=== PATIENT | male | born 1960 | race African-American/Black ===

== ENCOUNTER 2020-07-20 05:12 | Inpatient (IN) ==
--- NOTE | 2020-07-20 05:34 | Emergency Department Note ---
Impression & Plan NSTEMI (non-ST elevated myocardial infarction) ED Provider Note NAME: FARZANEH [id number] VINCENT AGE: 59 SEX: M ARRIVES VIA: Ambulance INFORMANT: Patient ED PROVIDER(S): Pamela Coates DO CHIEF COMPLAINT: Substernal chest pain PLAN: [facility] MEDICAL DECISION MAKING: This is a 59-year-old male patient who presents to the emergency department from the present after awakening with substernal chest pain. Patient was significantly diaphoretic upon evaluation at the detention. He received sublingual nitroglycerin and aspirin which relieved his discomfort. EKG is unremarkable, however the patient has an elevated troponin. He has been chest pain-free while here in the emergency department. The patient received aspirin in the prehospital setting. The patient was bolused with heparin and started on a heparin drip. Triage Nursing notes reviewed and agree them. Vital Signs: reviewed and unremarkable Differential diagnosis: GERD, costochondritis, aortic dissection, STEMI, NSTEMI ER treatment provided: Heparin bolus Heparin drip Diagnostics interpreted by me: ECG: Normal sinus rhythm at a rate of [address] segment elevation or signs of ischemia. There is no ectopy. QTC is 404. There are no previous EKGs for comparison Cardiac Monitoring: Normal sinus rhythm at 74 Laboratory studies: See below Imaging studies: As per my interpretation Portable chest x-ray: No evidence of cardiomegaly; no pulmonary infiltrates or consolidations HPI: 59/M arrives for evaluation of chest pain. The patient woke from sleep with substernal chest pain that did not seem to radiate anywhere. The patient denies any shortness of breath, nausea or vomiting. He was significantly diaphoretic according to EMS. They administered sublingual nitroglycerin which relieved his pain. He was also given 4 baby aspirin. The patient has no past medical history and no family history of heart disease. The patient's substernal chest discomfort lasted for approximately 45 minutes. ROS: See above HPI for pertinent positives & negatives. A total of 10 systems reviewed and were otherwise negative. PAST MEDICAL HISTORY:See Below PAST SURGICAL HISTORY:See Below FAMILY HISTORY:He denies any family history of heart disease in his parents or siblings. SOCIAL HISTORY:Patient is a prisoner HOME MEDICATIONS:See Below ALLERGIES:See Below VITALS:See Below PHYSICAL EXAMINATION: HEENT: Head - normocephalic and atraumatic Pupils are equal, round, and reactive to light. Extraocular eye muscles are intact, and sclera are anicteric. Nose - moist nasal mucosa without discharge. Mouth - moist buccal mucosa. Oropharynx is nonerythematous and there is no tonsillar exudate or edema noted. Neck: Supple; no cervical lymphadenopathy or JVD Heart: Regular rate and rhythm. There is a normal S1 and S2 with no murmurs, clicks, or gallops appreciated. Lungs: Clear to auscultation bilaterally with no wheezes, rales, or rhonchi. Abdomen: Soft, completely nontender, nondistended, with good bowel sounds. There are no palpable pulsatile masses or hepatosplenomegaly. There is no guarding, rigidity, or rebound noted. Extremities: No evidence of cyanosis, clubbing, or edema. There are easily palpable peripheral pulses. Skin: warm and dry with good turgor and no rashes. ED COURSE: Times/Reassessments: 0520: Patient was evaluated in room C4. A complete history and physical was performed. An order was placed for continuous cardiac monitoring. The patient was in a normal sinus rhythm at a rate of 74. A twelve-lead EKG was obtained. Laboratory studies were drawn as above. Patient had a portable chest x-ray as described above. I reevaluated the patient at this time. He remains chest pain-free. Nursing staff did a rectal exam which was heme-negative. The patient was bolused with IV heparin. I reviewed the results of the laboratory studies and x-ray with the patient. He will be started on a heparin drip. I discussed the case with the [facility] hospitalist and they will evaluate for further management. I have personally spent greater than 30 minutes of critical care time in the direct management of this patient. This includes bedside care, interpretation of diagnostic studies, and testing, discussion with consultants, patient, and family members, and other required patient management activities. This 30 minutes is in excess of all separately billable procedures. Pamela Coates, Past Med/Surg History Medical History No significant past medical history Surgical History (Updated 07/20/20 @ 09:22 by Leigh Robert MD) No significant past surgical history Family History (Updated 07/20/20 @ 09:23 by Leigh Robert MD) Father Prostate cancer Mother , age 48 from ruptured cerebral aneurysm Cerebral aneurysm Denies family history of Coronary heart disease Social History (Updated 07/20/20 @ 09:24 by Leigh Robert MD) Smoking Status: Never smoker Tobacco Type: Cigarettes Age Started Using Tobacco: 18; Age Quit Using Tobacco: 19; Years Smoked: 1; Hx Alcohol Use: No Hx Substance Use: No Preferred Language: Sinhala Communication Ability: Effective Quality Analyst Required: No Beliefs That Will Affect Care: None Current Living Situation: Other Current Living Situation Comment: Prisoner Feels Safe at Home: Yes Assistive Devices: None Allergies Allergies Allergy/AdvReac Type Severity Reaction Status Date / Time No Known Allergies Allergy Unverified 07/20/20 05:18 Home Meds Home Medications Medication Instructions Recorded Confirmed No Known Home Medications 07/20/20 07/20/20 Results & Data (ED) Vital Signs Vital Signs - 24 hr 07/20/20 05:20 07/20/20 05:21 07/20/20 05:54 Temperature 36.7 C Temperature Source Oral Pulse Rate 70 Pulse Rate from SpO2 Sensor Respiratory Rate 14 Blood Pressure 143/85 H Blood Pressure Mean 104 Pulse Oximetry 94 96 98 Oxygen Delivery Method Room Air Room Air Sepsis Recent Fever Within 48 Hours No Sepsis New/Unexplained Change in Mental Status N/A Sepsis Action Taken by Nursing No Action Required 07/20/20 06:00 07/20/20 06:30 07/20/20 06:56 Temperature Temperature Source Pulse Rate 64 75 70 Pulse Rate from SpO2 Sensor 65 77 69 Respiratory Rate 17 14 17 Blood Pressure 147/87 H Blood Pressure Mean 107 Pulse Oximetry 99 98 99 Oxygen Delivery Method Sepsis Recent Fever Within 48 Hours Sepsis New/Unexplained Change in Mental Status Sepsis Action Taken by Nursing 07/20/20 06:57 07/20/20 07:00 07/20/20 07:01 Temperature Temperature Source Pulse Rate 68 71 69 Pulse Rate from SpO2 Sensor 69 69 69 Respiratory Rate 18 13 15 Blood Pressure 149/88 H Blood Pressure Mean 108 Pulse Oximetry 99 100 100 Oxygen Delivery Method Sepsis Recent Fever Within 48 Hours Sepsis New/Unexplained Change in Mental Status Sepsis Action Taken by Nursing 07/20/20 07:30 07/20/20 07:31 07/20/20 08:00 Temperature Temperature Source Pulse Rate 67 60 78 Pulse Rate from SpO2 Sensor 67 61 76 Respiratory Rate 13 18 12 Blood Pressure 149/90 H 144/87 H Blood Pressure Mean 109 106 Pulse Oximetry 99 99 100 Oxygen Delivery Method Sepsis Recent Fever Within 48 Hours Sepsis New/Unexplained Change in Mental Status Sepsis Action Taken by Nursing 07/20/20 08:01 07/20/20 08:30 07/20/20 08:31 Temperature Temperature Source Pulse Rate 65 65 66 Pulse Rate from SpO2 Sensor 66 65 Respiratory Rate 18 14 16 Blood Pressure 125/70 Blood Pressure Mean 88 Pulse Oximetry 100 99 Oxygen Delivery Method Sepsis Recent Fever Within 48 Hours Sepsis New/Unexplained Change in Mental Status Sepsis Action Taken by Nursing Laboratory Data Result diagrams: 07/20/20 05:42 07/20/20 05:42 Lab Results 07/20/20 07/20/20 07/20/20 Range/Units 05:42 05:42 06:10 WBC 9.38 (4.8-10.8) K/uL RBC 4.54 L (4.7-6.1) M/uL Hgb 14.2 (14.0-18.0) g/dL Hct 41.0 L (42-52) % MCV 90.3 (80-100) fL MCH 31.3 (25-34) pg MCHC 34.6 (32-36) g/dL RDW Std Deviation 41.9 (36.4-46.3) fL RDW Coeff of Eder 12.8 (11.5-14.5) % Plt Count 176 (130-400) K/uL MPV 10.1 (7.4-10.4) fL Immature Gran % (Auto) 0.2 % Neut % (Auto) 78.8 % Lymph % (Auto) 15.1 % Lane % (Auto) 5.3 % Eos % (Auto) 0.4 % Baso % (Auto) 0.2 % Neut # (Auto) 7.38 H (1.4-6.5) K/uL Lymph # (Auto) 1.42 (1.2-3.4) K/uL Lane # (Auto) 0.50 (0.11-0.59) K/uL Eos # (Auto) 0.04 (0-0.5) K/uL Baso # (Auto) 0.02 (0-0.2) K/uL Immature Gran # (Auto) 0.02 (0.00-0.02) K/uL Sodium 140 (136-145) mmol/L Potassium 4.0 (3.5-5.1) mmol/L Chloride 110 H (98-107) mmol/L Carbon Dioxide 27 (21-32) mmol/L Anion Gap 3.0 (3-11) BUN 17 (7-18) mg/dl Creatinine 1.23 (0.6-1.4) mg/dl Est Cr Clr Drug Dosing 68.2 ml/min Est GFR ( Amer) 74.0 Est GFR (Non-Af Amer) 63.9 BUN/Creatinine Ratio 14.1 (10-20) Glucose 127 H (70-99) mg/dl Calcium 8.4 L (8.5-10.1) mg/dl Total Bilirubin 0.3 (0.2-1) mg/dl AST 25 (15-37) U/L ALT 29 (12-78) U/L Alkaline Phosphatase 76 (45-117) U/L Troponin I 0.101 H* (0-0.045) ng/ml Total Protein 8.3 H (6.4-8.2) gm/dl Albumin 3.4 (3.4-5.0) gm/dl Globulin 4.9 H (2.5-4.0) gm/dl Albumin/Globulin Ratio 0.7 L (0.9-2) Lipase 141 (73-393) U/L COVID-[address] Eval [address] CovFluRsv at [facility] SARS-CoV-2 (PCR) (Negative) Influenza Type A (PCR) (Neg) Influenza Type B (PCR) (Neg) RSV (RT-PCR) (Neg) 07/20/20 Range/Units 06:10 WBC (4.8-10.8) K/uL RBC (4.7-6.1) M/uL Hgb (14.0-18.0) g/dL Hct (42-52) % MCV (80-100) fL MCH (25-34) pg MCHC (32-36) g/dL RDW Std Deviation (36.4-46.3) fL RDW Coeff of Eder (11.5-14.5) % Plt Count (130-400) K/uL MPV (7.4-10.4) fL Immature Gran % (Auto) % Neut % (Auto) % Lymph % (Auto) % Lane % (Auto) % Eos % (Auto) % Baso % (Auto) % Neut # (Auto) (1.4-6.5) K/uL Lymph # (Auto) (1.2-3.4) K/uL Lane # (Auto) (0.11-0.59) K/uL Eos # (Auto) (0-0.5) K/uL Baso # (Auto) (0-0.2) K/uL Immature Gran # (Auto) (0.00-0.02) K/uL Sodium (136-145) mmol/L Potassium (3.5-5.1) mmol/L Chloride (98-107) mmol/L Carbon Dioxide (21-32) mmol/L Anion Gap (3-11) BUN (7-18) mg/dl Creatinine (0.6-1.4) mg/dl Est Cr Clr Drug Dosing ml/min Est GFR ( Amer) Est GFR (Non-Af Amer) BUN/Creatinine Ratio (10-20) Glucose (70-99) mg/dl Calcium (8.5-10.1) mg/dl Total Bilirubin (0.2-1) mg/dl AST (15-37) U/L ALT (12-78) U/L Alkaline Phosphatase (45-117) U/L Troponin I (0-0.045) ng/ml Total Protein (6.4-8.2) gm/dl Albumin (3.4-5.0) gm/dl Globulin (2.5-4.0) gm/dl Albumin/Globulin Ratio (0.9-2) Lipase (73-393) U/L COVID-19 Eval Order SARS-CoV-2 (PCR) NEGATIVE (Negative) Influenza Type A (PCR) Negative (Neg) Influenza Type B (PCR) Negative (Neg) RSV (RT-PCR) Negative (Neg) Administered Medications Metoprolol Tartrate (Metoprolol Tartrate 25 Mg Tab) 25 mg PO BID [facility] Stop: 08/19/20 20:59 Last Admin: 07/20/20 20:47 Dose: 25 mg Documented by: [id number] Ticagrelor (Ticagrelor 90 Mg Tab) 90 mg PO BID [facility] Stop: 08/19/20 21:59 Last Admin: 07/20/20 20:47 Dose: 90 mg Documented by: [id number] Discontinued Medications Aspirin (Aspirin 81 Mg Ectab) 81 mg PO ONE ONE Stop: 07/20/20 12:31 Last Admin: 07/20/20 14:18 Dose: 81 mg Documented by: [id number] Bivalirudin (Bivalirudin 250 Mg Vial ([employer] Only)) Confirm Administered Dose 250 mg .ROUTE .STK-MED ONE Stop: 07/20/20 10:25 Last Admin: 07/20/20 11:48 Dose: 250 mg Documented by: [id number] Fentanyl Citrate (Fentanyl Citrate 100 Mcg/2 Ml Vial) Confirm Administered Dose 100 mcg .ROUTE .STK-MED ONE Stop: 07/20/20 10:16 Last Admin: 07/20/20 11:47 Dose: 25 mcg Documented by: [id number] Heparin Sodium (Porcine) (Heparin Sod (Porcine) 1000 Unit/Ml 10 Ml Vial) Confirm Administered Dose 10,000 units .ROUTE .STK-MED ONE Stop: 07/20/20 06:47 Last Admin: 07/20/20 06:49 Dose: 5,000 units Documented by: [id number] Cosigned by: [id number] Heparin Sodium (Porcine) (Heparin (Porcine) 1000 Unit/Ml 10 Ml ([employer] Use Only)) Confirm Administered Dose 10,000 units .ROUTE .STK-MED ONE Stop: 07/20/20 10:16 Last Admin: 07/20/20 11:47 Dose: 2,500 units Documented by: [id number] Heparin Sodium/Dextrose (Heparin Iv Standard With Bolus) 1 ea IV NOW STA; Protocol Stop: 07/20/20 06:42 Last Admin: 07/20/20 06:51 Dose: 1 ea Documented by: [id number] Heparin Sodium/Dextrose (Heparin Iv Standard With Bolus) 1 ea IV Q15M [facility]; Protocol Stop: 08/19/20 12:14 Last Admin: 07/20/20 13:33 Dose: Not Given Documented by: [id number] Admin: 07/20/20 13:33 Dose: Not Given Documented by: [id number] Heparin Sodium/Sodium Chloride (Heparin In Nss Infusion 1000 Unit/500 Ml (2 U/Ml ) Bag) Confirm Administered Dose 3,000 units IV .STK-MED ONE Stop: 07/20/20 10:16 Last Admin: 07/20/20 11:48 Dose: 3,000 units Documented by: [id number] Heparin Sodium/Dextrose (Heparin Sodium/Dextrose) 25,000 units in 500 mls @ 0.02 mls/hr IV .Q24H [facility]; Protocol Stop: 08/19/20 06:44 Last Titration: 07/20/20 12:05 Dose: 0 units/hr, 0 mls/hr Documented by: [id number] Cosigned by: [id number] Admin: 07/20/20 06:50 Dose: 1,350 units/hr, 27 mls/hr Documented by: [id number] Cosigned by: [id number] Midazolam HCl (Midazolam Hcl 1 Mg/Ml 2ml Vial) Confirm Administered Dose 2 mg .ROUTE .STK-MED ONE Stop: 07/20/20 10:16 Last Admin: 07/20/20 11:48 Dose: 2 mg Documented by: [id number] Nicardipine HCl (Nicardipine Hcl Inj 2.5 Mg/Ml 10 Ml Amp) Confirm Administered Dose 25 mg .ROUTE .STK-MED ONE Stop: 07/20/20 10:16 Last Admin: 07/20/20 11:47 Dose: 25 mg Documented by: [id number] Nitroglycerin (Nitroglycerin 2% Ointment 30gm Tube) 1 inch EXT Q6 [facility] Stop: 08/19/20 11:59 Last Admin: 07/20/20 13:33 Dose: Not Given Documented by: [id number] Nitroglycerin/Dextrose (Nitroglycerin/D5w 100mcg/Ml 20ml Syr) Confirm Administered Dose 2,000 mcg .ROUTE .STK-MED ONE Stop: 07/20/20 10:17 Last Admin: 07/20/20 11:48 Dose: 2,000 mcg Documented by: [id number] Ondansetron HCl (Ondansetron Inj 2 Mg/Ml 2 Ml Vial) Confirm Administered Dose 4 mg .ROUTE .STK-MED ONE Stop: 07/20/20 09:53 Last Admin: 07/20/20 09:54 Dose: 4 mg Documented by: [id number] Ticagrelor (Ticagrelor 90 Mg Tab) Confirm Administered Dose 180 mg PO .STK-MED ONE Stop: 07/20/20 11:36 Last Admin: 07/20/20 11:48 Dose: 180 mg Documented by: [id number] Discharge Plan Visit Data Chief Complaint: Chest Pain Stated Complaint: Chest Pain ED Provider: Pamela Coates Discharge Problem: NSTEMI (non-ST elevated myocardial infarction) Patient Disposition: Still a Patient Discharge Instructions Interventions: ED Discharge Assessment Last Done: 07/20/20 10:10
[2020-07-20 05:56] LABS: Basophils # (auto) 0.02 K/uL (0-0.2); Basophils % (auto) 0.2 %; Eosinophils # (auto) 0.04 K/uL (0-0.5); Eosinophils % (auto) 0.4 %; Hemoglobin 14.2 g/dL (14.0-18.0); Immature Granulocytes # (auto) 0.02 K/uL (0.00-0.02); Immature Granulocytes % (auto) 0.2 %; Lymphocytes # (auto) 1.42 K/uL (1.2-3.4); Lymphocytes % (auto) 15.1 %; Mean Corpuscular Hemoglobin 31.3 pg (25-34); Mean Corpuscular Hgb Conc 34.6 g/dL (32-36); Mean Corpuscular Volume 90.3 fL (80-100); Mean Platelet Volume 10.1 fL (7.4-10.4); Monocytes % (auto) 5.3 %; Neutrophils # (auto) 7.38 K/uL (1.4-6.5); Neutrophils % (auto) 78.8 %; Platelet Count 176 K/uL (130-400); RDW Coefficient of Variation 12.8 % (11.5-14.5); RDW Standard Deviation 41.9 fL (36.4-46.3); Red Blood Count 4.54 M/uL (4.7-6.1); White Blood Count 9.38 K/uL (4.8-10.8)
[2020-07-20 06:15] LABS: Albumin Level 3.4 gm/dl (3.4-5.0); BUN Creatinine Ratio 14.1 (10-20); Calcium 8.4 mg/dl (8.5-10.1); Creatinine Clr Calc Pharmacy 68.2 ml/min; Est GFR (Non-African American) 63.9
[2020-07-20 06:39] LABS: Albumin Globulin Ratio 0.7 (0.9-2); Bilirubin,Total 0.3 mg/dl (0.2-1); Globulin 4.9 gm/dl (2.5-4.0); Total Protein 8.3 gm/dl (6.4-8.2); Troponin I 0.101 ng/ml (0-0.045)
[2020-07-20] MEDS ORDERED: Heparin IV Adult Wt-Based Standard WITH Bolus Protocol IV STA (06:41)
[2020-07-20] MEDS ORDERED: HEPARIN SODIUM/DEXTROSE 25,000 UNITS/500 ML BAG IV SCH (06:45)
[2020-07-20] MEDS ORDERED: HEPARIN SOD (PORCINE) 1000 UNIT/ML ONE (06:46)
[2020-07-20 07:02] LABS: Influenza A virus by PCR Negative (Neg); Influenza B virus by PCR Negative (Neg); RSV by PCR Negative (Neg); SARS CoV2 RNA(COVID-19) InHosp NEGATIVE (Negative)
--- NOTE | 2020-07-20 08:55 | History & Physical Report ---
Date of Service July 20, 2020 Assessment & Plan (1) NSTEMI (non-ST elevated myocardial infarction): Patient with typical angina and ECG changes -Admit to PCU on telemetry -Check echo -Consult cardiology-may need cardiac catheterization more urgently-will d/w Interventionalist. -Follow ECG -Serial troponin -Keep n.p.o. for now -Started heparin drip in the ER and will continue -Start low-dose metoprolol 12.5 mg p.o. twice daily-baseline heart rate 60s-70 -Start Nitropaste -Check lipid panel in the morning -Continue aspirin 81 mg daily -Morphine as needed for pain (2) Chest pain: As above, chest x-ray negative, secondary to NSTEMI (3) DVT prophylaxis: Heparin gtt Dispo-admit to PCU History of Present Illness Chief Complaint: Chest pain Primary Care Provider: JOSEPHINE Crews This patient is a 59-year-old male with no significant past medical history who presents from the alf after awakening with substernal severe 10/10 in severity chest pain. He was significantly diaphoretic upon evaluation at the alf. The pain was nonradiating, and he denied any shortness of breath, nausea/vomiting. The chest pain lasted for 45 minutes and he received sublingual nitroglycerin and 4 baby aspirin prior to arrival in the ER which completely resolved his chest pain, however when I saw him at 9 AM, he was complaining of 2/10 chest pressure. His ECG showed normal sinus rhythm, with mild but not diagnostic ST elevation in leads II, III and aVF, as well as nonspecific T wave changes in V2, no previous ECGs available for comparison. A repeat ECG was performed when I was at the bedside which showed some improvement but slight persistence in mild upsloping ST elevation in leads II, III and aVF. His first troponin was elevated 0.1, and labs were otherwise unremarkable. His chest x-ray upon my review was negative but has not been read by the radiologist yet. He will be admitted for NSTEMI and cardiology consultation will be obtained. Allergies Allergy/AdvReac Type Severity Reaction Status Date / Time No Known Allergies Allergy Unverified 07/20/20 05:18 Home Medications Medication Instructions Recorded Confirmed Type No Known Home Medications 07/20/20 07/20/20 History Past Med/Surg History Medical History No significant past medical history Surgical History (Updated 07/20/20 @ 09:22 by Leigh Robert MD) No significant past surgical history Family History (Updated 07/20/20 @ 09:23 by Leigh Robert MD) Father Prostate cancer Mother , age 48 from ruptured cerebral aneurysm Cerebral aneurysm Denies family history of Coronary heart disease Social History (Updated 07/20/20 @ 09:24 by Leigh Robert MD) Smoking Status: Former smoker Tobacco Type: Cigarettes Age Started Using Tobacco: 18; Age Quit Using Tobacco: 19; Years Smoked: 1; Hx Alcohol Use: No Hx Substance Use: No Current Living Situation: Other Current Living Situation Comment: Prisoner Review of Systems Review of Systems: All systems reviewed & are unremarkable except as noted in HPI & below No recent fevers or chills, no runny nose or shortness of breath, no Covid symptoms He has never had Covid Physical Exam Constitutional: WD/WN, vitals as above Eyes: PERRL, conjunctivae normal, anicteric sclerae ENMT: external ear and nose normal, oropharynx normal Neck: trachea midline, no thyromegaly Respiratory: normal respiratory effort, lungs clear to auscultation Cardiovascular: RRR, no murmur, no edema Vessels: no JVD and no carotid bruit Extremities: no calf tenderness Chest (Breasts): Chest: normal inspection of chest Gastrointestinal (Abdomen): normal bowel sounds, soft, nontender, no hepatosplenomegaly Musculoskeletal: Extremities: extremities normal to inspection; no cyanosis and no clubbing Skin: no rashes, warm and dry Neurologic: moves all extremities and awake; no focal motor deficits Psychiatric: A+Ox3, euthymic affect Lymphatic: no lymphedema Results & Data Results & Data ([facility]) Vital Signs (Past 12 Hours) Vital Signs Temp Pulse Resp BP Pulse Ox 07/20/20 08:31 66 16 07/20/20 08:30 65 14 125/70 99 07/20/20 08:01 65 18 100 07/20/20 08:00 78 12 144/87 H 100 07/20/20 07:31 60 18 99 07/20/20 07:30 67 13 149/90 H 99 03/28/21 07:01 69 15 100 07/20/20 07:00 71 13 149/88 H 100 07/20/20 06:57 68 18 99 07/20/20 06:56 70 17 147/87 H 99 07/20/20 06:30 75 14 98 07/20/20 06:00 64 17 99 07/20/20 05:54 98 07/20/20 05:21 36.7 C 96 07/20/20 05:20 70 14 143/85 H 94 Laboratory Results 07/20/20 07/20/20 07/20/20 Range/Units 06:10 06:10 05:42 WBC (4.8-10.8) K/uL RBC (4.7-6.1) M/uL Hgb (14.0-18.0) g/dL Hct (42-52) % MCV (80-100) fL MCH (25-34) pg MCHC (32-36) g/dL RDW Std Deviation (36.4-46.3) fL RDW Coeff of Eder (11.5-14.5) % Plt Count (130-400) K/uL MPV (7.4-10.4) fL Immature Gran % (Auto) % Neut % (Auto) % Lymph % (Auto) % [place] % (Auto) % Eos % (Auto) % Baso % (Auto) % Neut # (Auto) (1.4-6.5) K/uL Lymph # (Auto) (1.2-3.4) K/uL [place] # (Auto) (0.11-0.59) K/uL Eos # (Auto) (0-0.5) K/uL Baso # (Auto) (0-0.2) K/uL Immature Gran # (Auto) (0.00-0.02) K/uL Sodium 140 (136-145) mmol/L Potassium 4.0 (3.5-5.1) mmol/L Chloride 110 H (98-107) mmol/L Carbon Dioxide 27 (21-32) mmol/L Anion Gap 3.0 (3-11) BUN 17 (7-18) mg/dl Creatinine 1.23 (0.6-1.4) mg/dl Est Cr Clr Drug Dosing 68.2 ml/min Est GFR ( Amer) 74.0 Est GFR (Non-Af Amer) 63.9 BUN/Creatinine Ratio 14.1 (10-20) Glucose 127 H (70-99) mg/dl Calcium 8.4 L (8.5-10.1) mg/dl Total Bilirubin 0.3 (0.2-1) mg/dl AST 25 (15-37) U/L ALT 29 (12-78) U/L Alkaline Phosphatase 76 (45-117) U/L Troponin I 0.101 H* (0-0.045) ng/ml Total Protein 8.3 H (6.4-8.2) gm/dl Albumin 3.4 (3.4-5.0) gm/dl Globulin 4.9 H (2.5-4.0) gm/dl Albumin/Globulin Ratio 0.7 L (0.9-2) Lipase 141 (73-393) U/L COVID-19 Eval Order CovFluRsv at [facility] SARS-CoV-2 (PCR) NEGATIVE (Negative) Influenza Type A (PCR) Negative (Neg) Influenza Type B (PCR) Negative (Neg) RSV (RT-PCR) Negative (Neg) 07/20/20 Range/Units 05:42 WBC 9.38 (4.8-10.8) K/uL RBC 4.54 L (4.7-6.1) M/uL Hgb 14.2 (14.0-18.0) g/dL Hct 41.0 L (42-52) % MCV 90.3 (80-100) fL MCH 31.3 (25-34) pg MCHC 34.6 (32-36) g/dL RDW Std Deviation 41.9 (36.4-46.3) fL RDW Coeff of Eder 12.8 (11.5-14.5) % Plt Count 176 (130-400) K/uL MPV 10.1 (7.4-10.4) fL Immature Gran % (Auto) 0.2 % Neut % (Auto) 78.8 % Lymph % (Auto) 15.1 % [place]ink[place] % (Auto) 5.3 % Eos % (Auto) 0.4 % Baso % (Auto) 0.2 % Neut # (Auto) 7.38 H (1.4-6.5) K/uL Lymph # (Auto) 1.42 (1.2-3.4) K/uL Winkler # (Auto) 0.50 (0.11-0.59) K/uL Eos # (Auto) 0.04 (0-0.5) K/uL Baso # (Auto) 0.02 (0-0.2) K/uL Immature Gran # (Auto) 0.02 (0.00-0.02) K/uL Sodium (136-145) mmol/L Potassium (3.5-5.1) mmol/L Chloride (98-107) mmol/L Carbon Dioxide (21-32) mmol/L Anion Gap (3-11) BUN (7-18) mg/dl Creatinine (0.6-1.4) mg/dl Est Cr Clr Drug Dosing ml/min Est GFR ( Amer) Est GFR (Non-Af Amer) BUN/Creatinine Ratio (10-20) Glucose (70-99) mg/dl Calcium (8.5-10.1) mg/dl Total Bilirubin (0.2-1) mg/dl AST (15-37) U/L ALT (12-78) U/L Alkaline Phosphatase (45-117) U/L Troponin I (0-0.045) ng/ml Total Protein (6.4-8.2) gm/dl Albumin (3.4-5.0) gm/dl Globulin (2.5-4.0) gm/dl Albumin/Globulin Ratio (0.9-2) Lipase (73-393) U/L COVID-19 Eval Order SARS-CoV-2 (PCR) (Negative) Influenza Type A (PCR) (Neg) Influenza Type B (PCR) (Neg) RSV (RT-PCR) (Neg) Diagnostic Findings Chest x-ray image personally reviewed by me and is normal-awaiting official radiology report ECG Additional Comments: ECGs as per HPI Code Status & VTE Plan Code Status Full code VTE Prophylaxis Plan VTE Prophylaxis will be ordered: Yes PG Care Time/CCT Total # of Minutes Spent Total Time Spent with Patient: Total time spent is greater than 50% in coordination of care (as documented) at patient's floor/unit and/or counseling patient: Coding Level of Care Code 37846 Initial Inpt Care Lvl 3 Diagnoses NSTEMI (non-ST elevated myocardial infarction) I21.4 Chest pain R07.9 DVT prophylaxis Z29.9
--- NOTE | 2020-07-20 08:59 | Electrocardiogram Report ---
Test Reason : Blood Pressure : / mmHG Vent. Rate : 068 BPM Atrial Rate : 068 BPM P-R Int : 136 ms QRS Dur : 086 ms QT Int : 380 ms P-R-T Axes : 067 054 079 degrees QTc Int : 404 ms Poor data quality, interpretation may be adversely affected Normal sinus rhythm Minimal voltage criteria for LVH, may be normal variant ST elevation, consider early repolarization, pericarditis, or injury Abnormal ECG No previous ECGs available Confirmed by Cleveland Alfredo ([id number]) on 07/20/2020 8:59:20 AM Referred By: Eleonora SCI Confirmed By:Cleveland Alfredo
[2020-07-20] MEDS ORDERED: METOPROLOL TARTRATE 25 MG TAB PO SCH (09:00)
[2020-07-20] MEDS ORDERED: NITROGLYCERIN SL 0.4 MG/TAB TAB SL PRN (09:11)
--- NOTE | 2020-07-20 09:45 | XRay Report ---
XR chest 1V portable HISTORY: 59 years-old Male Chest Pain acute atypical chest pain COMPARISON: None TECHNIQUE: Portable AP view of the chest FINDINGS: Cardiomediastinal and hilar silhouettes are within normal limits. No pneumothorax, pleural effusion, airspace consolidation or overt pulmonary edema. Mild right hemidiaphragmatic elevation. Mild degener ative changes of the shoulders and spine. The bones appear grossly intact. IMPRESSION: No acute process. ACT 112: Negative or not required by law. The above report was generated using voice recognition software. It may contain grammatical, syntax o r spelling errors. Electronically signed by: Daljit Toney M.D. 07/20/2020 9:43 AM
[2020-07-20] MEDS ORDERED: ONDANSETRON INJ 2 MG/ML 2 ML VIAL ONE (09:52)
--- NOTE | 2020-07-20 10:11 | Cardiology Consultation ---
Date of Consultation July 20, 2020 Assessment & Plan (1) NSTEMI (non-ST elevated myocardial infarction): -the patient presented with a classic history for myocardial ischemia. -initial EKG suggested inferior injury. -his symptoms improved with sublingual nitroglycerin and aspirin. -still has low level chest discomfort. -initial troponin elevated at 0.101. -agree with heparin, metoprolol, and aspirin. -will proceed with urgent cardiac catheterization. -case discussed with Dr. Martell. History of Present Illness History of Present Illness Mr. Tran is a 59-year-old male who presented to the emergency room this morning with a chest pain syndrome. This consultation was ordered to assist in his management. The patient was in his usual state of health until this morning when he was awakened from sound sleep with crushing substernal chest pain and diaphoresis. He did not experience radiation discomfort, nausea, vomiting, or palpitations. The patient explained that something was not right and each contact the [facility]. The patient received 4 chewable aspirin in several doses of sublingual nitroglycerin. His discomfort improved from a 10/10 down to a 2/10 with those interventions. Total duration of the severe pain was 45 minutes. The patient still complains of 1/10 chest discomfort currently. The patient has never known of a cardiac event. He has never had a stress test nor cardiac catheterization. Over the last several weeks, patient has been walking around [facility] and has not experienced any exertional chest pain or limiting dyspnea. He further denies syncope, presyncope, PND, orthopnea, palpitations, lower extremity edema, and claudication. 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 No tobacco alcohol Family history No early coronary artery disease Review systems A 10 review systems was negative except for that described above. Allergies Allergy/AdvReac Type Severity Reaction Status Date / Time No Known Allergies Allergy Unverified 07/20/20 05:18 Home Medications Medication Instructions Recorded Confirmed Type No Known Home Medications 07/20/20 07/20/20 History Patient History Medical History No significant past medical history Surgical History (Updated 07/20/20 @ 09:22 by Leigh Robert MD) No significant past surgical history Family History (Updated 07/20/20 @ 09:23 by Leigh Robert MD) Father Prostate cancer Mother , age 48 from ruptured cerebral aneurysm Cerebral aneurysm Denies family history of Coronary heart disease Social History (Updated 07/20/20 @ 09:24 by Leigh Robert MD) Smoking Status: Former smoker Tobacco Type: Cigarettes Age Started Using Tobacco: 18; Age Quit Using Tobacco: 19; Years Smoked: 1; Hx Alcohol Use: No Hx Substance Use: No Current Living Situation: Other Current Living Situation Comment: Prisoner Physical Exam Physical Exam: In general this is a well-developed well-nourished black male in no acute distress. HEENT exam is negative. Neck is supple with full carotid upstrokes. There are no carotid bruits. Jugular venous pressure is flat at 90. There is no thyromegaly. Cardiovascular exam reveals a regular rhythm with a normal S1 and S2. No S3, S4, or murmurs are noted. Lungs are clear without rales, rhonchi, or wheezes. Abdomen is soft and nontender without bruits. Extremities reveal intact radial artery and posterior tibial pulses bilaterally. There is no peripheral edema. Results & Data ([facility]) Vital Signs (Past 12 Hours) Vital Signs Temp Pulse Resp BP Pulse Ox 07/20/20 09:31 66 20 100 07/20/20 09:30 63 20 135/84 100 07/20/20 09:05 72 21 100 07/20/20 09:04 70 22 149/84 H 100 07/20/20 09:00 67 18 07/20/20 08:31 66 16 07/20/20 08:30 65 14 125/70 99 07/20/20 08:01 65 18 100 07/20/20 08:00 78 12 144/87 H 100 07/20/20 07:31 60 18 99 07/20/20 07:30 67 13 149/90 H 99 07/20/20 07:01 69 15 100 07/20/20 07:00 71 13 149/88 H 100 07/20/20 06:57 68 18 99 07/20/20 06:56 70 17 147/87 H 99 07/20/20 06:30 75 14 98 07/20/20 06:00 64 17 99 07/20/20 05:54 98 07/20/20 05:21 36.7 C 96 07/20/20 05:20 70 14 143/85 H 94 Laboratory Results CBC notes hemoglobin 14.2, hematocrit 41.0, white count 9.38, and platelet count [id number]. Electrolytes note a sodium of 140, potassium 4.0, chloride 110, bicarb 27, BUN 17, creatinine 1.23, and glucose of 127. Troponin I level is elevated 0.101. Diagnostic Findings EKG at 5:00 a.m. noted sinus rhythm and an inferior ST abnormality suggestive of cardiac injury. Follow-up ECG noted sinus rhythm with improvement in the inferior ST changes. Chest x-ray shows no acute disease. PG Care Time/CCT Total # of Minutes Spent Total Time Spent with Patient: Total time spent is greater than 50% in coordination of care (as documented) at patient's floor/unit and/or counseling patient: Coding Level of Care Code 41751 Inpt Consult Level 5 Diagnoses NSTEMI (non-ST elevated myocardial infarction) I21.4
[2020-07-20] MEDS ORDERED: HEPARIN (PORCINE) 1000 UNIT/ML 10 ML (CATH LAB USE ONLY) ONE (10:15)
[2020-07-20] MEDS ORDERED: fentaNYL citrate 100 MCG/2 ML VIAL ONE (10:15)
[2020-07-20] MEDS ORDERED: niCARdipine HCL INJ 2.5 MG/ML 10 ML AMP ONE (10:15)
[2020-07-20] MEDS ORDERED: MIDAZOLAM HCL 1 MG/ML 2ML VIAL ONE (10:15)
[2020-07-20] MEDS ORDERED: NITROGLYCERIN/D5W 100MCG/ML 20ML SYR ONE (10:16)
[2020-07-20] MEDS ORDERED: BIVALIRUDIN 250 MG VIAL (CATH LAB ONLY) ONE (10:24)
--- NOTE | 2020-07-20 10:47 | Pre Anesthesia Assessment ---
Date of Service July 20, 2020 Pre Sedation Assessment Vital Signs Temp Pulse Resp BP Pulse Ox 07/20/20 10:10 36.7 C 67 15 156/82 H 98 07/20/20 10:01 67 15 98 07/20/20 10:00 68 16 156/82 H 100 07/20/20 09:31 66 20 100 07/20/20 09:30 63 20 135/84 100 07/20/20 09:05 72 21 100 07/20/20 09:04 70 22 149/84 H 100 07/20/20 09:00 67 18 07/20/20 08:31 66 16 07/20/20 08:30 65 14 125/70 99 07/20/20 08:01 65 18 100 07/20/20 08:00 78 12 144/87 H 100 07/20/20 07:31 60 18 99 07/20/20 07:30 67 13 149/90 H 99 07/20/20 07:01 69 15 100 07/20/20 07:00 71 13 149/88 H 100 07/20/20 06:57 68 18 99 07/20/20 06:56 70 17 147/87 H 99 07/20/20 06:30 75 14 98 07/20/20 06:00 64 17 99 07/20/20 05:54 98 07/20/20 05:21 36.7 C 96 07/20/20 05:20 70 14 143/85 H 94 Cardiovascular RRR, no murmur, no edema Respiratory normal respiratory effort, lungs clear to auscultation Pre-Sedation Airway Assessment Smoking Status: Former smoker Mallampati Class: II ASA: ASA3 Procedure Planning Contraindications for Sedation: none Current Medications Reviewed: Yes Notes The planned sedation has been discussed with the patient. Informed Consent was obtained. I have identified the patient, determined the appropriateness of sedation and have assessed the patient immediately prior to the procedure. All medicine(s) and interventions are by my order.
[2020-07-20] MEDS ORDERED: TICAGRELOR 90 MG TAB PO ONE (11:35)
--- NOTE | 2020-07-20 11:36 | Post Anesthesia Assessment ---
Date of Service July 20, 2020 Post Sedation Assessment Vital Signs Temp Pulse Resp BP Pulse Ox 07/20/20 10:30 99 07/20/20 10:10 36.7 C 67 15 156/82 H 98 07/20/20 10:01 67 15 98 07/20/20 10:00 68 16 156/82 H 100 07/20/20 09:31 66 20 100 07/20/20 09:30 63 20 135/84 100 07/20/20 09:05 72 21 100 07/20/20 09:04 70 22 149/84 H 100 07/20/20 09:00 67 18 07/20/20 08:31 66 16 07/20/20 08:30 65 14 125/70 99 07/20/20 08:01 65 18 100 07/20/20 08:00 78 12 144/87 H 100 07/20/20 07:31 60 18 99 07/20/20 07:30 67 13 149/90 H 99 07/20/20 07:01 69 15 100 07/20/20 07:00 71 13 149/88 H 100 07/20/20 06:57 68 18 99 07/20/20 06:56 70 17 147/87 H 99 07/20/20 06:30 75 14 98 07/20/20 06:00 64 17 99 07/20/20 05:54 98 07/20/20 05:21 36.7 C 96 07/20/20 05:20 70 14 143/85 H 94 Recovery Score Activity: Moves 4 extremities Respiration: Deep Breath/Cough Circulation: +/-20% PreAnes Value Consciousness: Fully Awake Oxygen Saturation: > 92% On Room Air Discharge Sedation Level of Care: Phase I Post Sedation Plan On clinical assessment, the patient appears to have tolerated the sedation without complications. Patient is recovering as anticipated. Patient will continue to be monitored by nursing and may be discharged when sedation discharge criteria are met per below protocol. Upon Completions of procedure up to 15 minutes continue every 5 minute vital signs and the P.A.R. score; then discharge to a Phase I or Fast Track to Phase II per the following guidelines: * Discharge Patient to appropriate Phase II area if PAR is 8 or greater or return to pre- procedure baseline. The post - procedure orders will be as directed. * If PAR score is less than 8 or not return to pre-procedure baseline then patient will follow Phase I monitoring till PAR is reached for Phase II. The Phase I may be done in procedure room or may call to secure a Phase I area. * If naloxone or flumazenil are used for reversal, hold in Phase I for continued monitoring from when last reversal dose was given for a minimum of 60 minutes or longer pending the nurse and/or physician discretion of patient condition before discharge to Phase II. Please call the Sedation Physician to re-evaluate and complete post-note for discharge to Phase II area. Do NOT discharge from procedure sedation or Phase 1 until post- sedation evaluation note is complete by procedure /sedation MD Sedation Discharge Instructions to be given to the patient at discharge to home.
--- NOTE | 2020-07-20 11:41 | Cardiac Catheterization ---
ACC Data: Unishear Operator Cardiac Status Clinical evaluation leading to the procedure CAD Presenation: Non STEMI Diagnostic Physicians Name: Ziggy Martell MD Closure Device Recommendations: Medical Therapy and/or Counseling and PCI without planned CABG Cardiac Cath Procedure Full Procedure Date July 20, 2020 Pre-Procedure Diagnosis Pre-Procedure Diagnosis: Non STEMI AUC Score AUC Score: 9 Post-Procedure Diagnosis Post-Procedure Diagnosis: Severe CAD and Successful PCI Procedure(s) Performed Procedure(s) Performed: Coronary Angiography, Left Heart Cath, LV Angiography and Drug Eluting Stent Portable Irrigation Operator Ziggy Martell MD Estimated Blood Loss Estimated Blood Loss: 15 ccs Medication(s) Medication(s): Aspirin, Bivalirudin, Heparin and Nicardipine Summary of Findings 59-year-old gentleman presented with acute coronary syndrome, initial EKG suggestive of subtle ST elevations in inferior leads and he was referred for urgent cardiac catheterization. Cardiac catheterization revealed occluded distal right coronary artery, he did have a very high takeoff of the RV marginal branch. Left circumflex and obtuse marginal arteries had minimal diffuse disease, left anterior descending artery had mild to moderate diffuse disease up to 40 to 50% severity. PCI was performed using a 5 [place] JR4 guide, 2.25 mm x 22 mm Medtronic [place] d rug-eluting stent was placed, postdilated with 2.5 mm noncompliant balloon with excellent angiographic results and TERRY-3 flow. Hemodynamics Rest Ao:: 119/84 Final Ao: 104/63 LV: 102/6 Recommendations Recommendations: Medical Therapy and/or Counseling and PCI without planned CABG Radiation Exposure (mGy) 2088 Contrast (mls) 150 I attest to the content of the Intraoperative Record and any orders documented therein. Any exceptions are noted below. PG Care Time/CCT Total # of Minutes Spent Total Time Spent with Patient: Total time spent is greater than 50% in coordination of care (as documented) at patient's floor/unit and/or counseling patient:
[2020-07-20] MEDS ORDERED: NITROGLYCERIN 2% OINTMENT 30GM TUBE EXT SCH (12:00)
[2020-07-20] MEDS ORDERED: ACETAMINOPHEN 325 MG TAB PO PRN (12:07)
[2020-07-20] MEDS ORDERED: MoRPHine SULFATE 2 MG/ML CARP IV PRN (12:07)
[2020-07-20] MEDS ORDERED: ONDANSETRON INJ 2 MG/ML 2 ML VIAL IV PRN (12:07)
[2020-07-20] MEDS ORDERED: ASPIRIN 81 MG ECTAB PO ONE (12:30)
--- NOTE | 2020-07-20 13:00 | Critical Care Consultation ---
Date of Consultation July 20, 2020 Assessment & Plan (1) NSTEMI (non-ST elevated myocardial infarction): EKG 07/12/2020: ST elevation appreciated in lead II, III and aVF. Chest x-ray 07/12/2020 personally reviewed: Portable film, poor inspiratory effort, elevation of the right hemidiaphragm, bilateral costophrenic and cardiophrenic angles are clean, no clear lung. Appreciated. There is haziness in the left mid zone this is most likely confluence of shadows. --NSTEMI S/p CHRISSIE distal RCA 07/20/2020 Continue with DAPT, will start high-dose statin Start beta-sang and ROBSON inhibitor once the blood pressure permits Trend troponin and EKG Initial troponin 0.9 Lipid profile and HbA1c in the morning. --Prophylaxis VTE: IPC's GI: None Lines: Peripheral Diet: Cardiac Plan: Follow-up 2D echo Continue with aspirin and Brilinta. Trend troponins Monitor EKG Nitro for pain. Please note the above document was generated using voice recognition software. It may contain grammatical, syntax or spelling errors.Any formal questions or concerns about the content, text or information contained within the body of this dictation should be directly addressed to the provider for clarification. (2) Chest pain: (3) Admitted to intensive care unit: History of Present Illness Attending Physician: Leigh oRbert MD History of Present Illness 59-year-old -[place] male with no significant past medical history presenting to the ED with complaints of substernal severe chest pain nonradiating. He was diaphoretic at that time. Pain resolved with sublingual nitroglycerin. In the ED patient EKG showed ST elevation in lead II, III and aVF but not greate r than 1 mm. Cardiology were consulted who recommended urgent cath. Patient had cardiac cath and distal RCA stent was placed in. At the time of examination patient stated that his chest pain is has resolved. He denies any shortness of breath, no diaphoresis, no dizziness, no headache, no nausea, no vomiting. Denies any dysuria or diarrhea. No fever or chills. He was saturating 99% on room air. Social history: Less than 5-pack-year smoking history, quit in 1978. No alcohol use, no illicit drug use. Allergies Allergy/AdvReac Type Severity Reaction Status Date / Time No Known Allergies Allergy Unverified 07/20/20 05:18 Home Medications Medication Instructions Recorded Confirmed Type No Known Home Medications 07/20/20 07/20/20 History Patient History Medical History No significant past medical history Surgical History (Updated 07/20/20 @ 09:22 by Leigh Robert MD) No significant past surgical history Family History (Updated 07/20/20 @ 09:23 by Leigh Robert MD) Father Prostate cancer Mother , age 48 from ruptured cerebral aneurysm Cerebral aneurysm Denies family history of Coronary heart disease Social History (Updated 07/20/20 @ 09:24 by Leigh Robert MD) Smoking Status: Never smoker Tobacco Type: Cigarettes Age Started Using Tobacco: 18; Age Quit Using Tobacco: 19; Years Smoked: 1; Hx Alcohol Use: No Hx Substance Use: No Preferred Language: Lao Communication Ability: Effective Pipe Fitter Ammonia Required: No Beliefs That Will Affect Care: None Current Living Situation: Other Current Living Situation Comment: Prisoner Feels Safe at Home: Yes Review of Systems Review of Systems: All systems reviewed & are unremarkable except as noted in HPI & below Physical Exam Physical Exam: Constitutional: No acute distress HEENT: EOMI, PERRLA Respiratory system: Good air entry bilaterally, no wheeze, no rhonchi, no crackles CVS: S1-S2 positive, no murmurs or gallops Abdomen: Soft, nontender, nondistended, positive bowel sounds x4 Extremities: +2 pulses bilaterally radialis/ dorsalis pedis, no cyanosis, no edema Neuro: Awake alert oriented x3 Psych: Normal mood and affect G/U: No Toney Skin: no rashes, warm and dry Lymphatic: no cervical or axillary lymphadenopathy Results & Data Results & Data ([facility]) Vital Signs (Past 12 Hours) Vital Signs Temp Pulse Resp BP Pulse Ox 07/20/20 10:30 99 07/20/20 10:10 36.7 C 67 15 156/82 H 98 07/20/20 10:01 67 15 98 07/20/20 10:00 68 16 156/82 H 100 07/20/20 09:31 66 20 100 07/20/20 09:30 63 20 135/84 100 07/20/20 09:05 72 21 100 07/20/20 09:04 70 22 149/84 H 100 07/20/20 09:00 67 18 07/20/20 08:31 66 16 07/20/20 08:30 65 14 125/70 99 07/20/20 08:01 65 18 100 07/20/20 08:00 78 12 144/87 H 100 07/20/20 07:31 60 18 99 07/20/20 07:30 67 13 149/90 H 99 07/20/20 07:01 69 15 100 07/20/20 07:00 71 13 149/88 H 100 07/20/20 06:57 68 18 99 07/20/20 06:56 70 17 147/87 H 99 07/20/20 06:30 75 14 98 07/20/20 06:00 64 17 99 07/20/20 05:54 98 07/20/20 05:21 36.7 C 96 07/20/20 05:20 70 14 143/85 H 94 07/20/20 05:42 07/20/20 05:42 Coding Level of Care Code 23443 Inpt Consult Level 3 Diagnoses NSTEMI (non-ST elevated myocardial infarction) I21.4 Chest pain R07.9 Admitted to intensive care unit Z78.9
[2020-07-20] MEDS: Heparin IV Adult Wt-Based Standard WITH Bolus Protocol IV SCH (13:33)
--- NOTE | 2020-07-20 15:15 | Electrocardiogram Report ---
Test Reason : Blood Pressure : / mmHG Vent. Rate : 067 BPM Atrial Rate : 067 BPM P-R Int : 142 ms QRS Dur : 092 ms QT Int : 350 ms P-R-T Axes : 067 049 065 degrees QTc Int : 369 ms Normal sinus rhythm Moderate voltage criteria for LVH, may be normal variant Nonspecific ST abnormality Abnormal ECG When compared with ECG of 20-JUL-2020 05:18, No significant change was found Confirmed by Cleveland Alfredo ([id number]) on 07/20/2020 3:14:52 PM Referred By: Eleonora BURTON Confirmed By:Cleveland Alfredo
[2020-07-20] MEDS: TICAGRELOR 90 MG TAB PO SCH (20:47)
[2020-07-20] MEDS: METOPROLOL TARTRATE 25 MG TAB PO SCH (20:47)
[2020-07-21 05:04] LABS: Basophils # (auto) 0.01 K/uL (0-0.2); Basophils % (auto) 0.1 %; Eosinophils # (auto) 0.04 K/uL (0-0.5); Eosinophils % (auto) 0.4 %; Hematocrit (blood only) 41.2 % (42-52); Hemoglobin 14.7 g/dL (14.0-18.0); Immature Granulocytes # (auto) 0.02 K/uL (0.00-0.02); Immature Granulocytes % (auto) 0.2 %; Lymphocytes # (auto) 1.45 K/uL (1.2-3.4); Lymphocytes % (auto) 15.9 %; Mean Corpuscular Hemoglobin 32.2 pg (25-34); Mean Corpuscular Hgb Conc 35.7 g/dL (32-36); Mean Corpuscular Volume 90.2 fL (80-100); Mean Platelet Volume 10.7 fL (7.4-10.4); Monocytes # (auto) 0.86 K/uL (0.11-0.59); Monocytes % (auto) 9.5 %; Neutrophils # (auto) 6.72 K/uL (1.4-6.5); Neutrophils % (auto) 73.9 %; Platelet Count 227 K/uL (130-400); RDW Coefficient of Variation 13.1 % (11.5-14.5); RDW Standard Deviation 42.8 fL (36.4-46.3); Red Blood Count 4.57 M/uL (4.7-6.1)
[2020-07-21 05:30] LABS: Alanine Aminotransferase 44 U/L (12-78); Albumin Globulin Ratio 0.6 (0.9-2); Albumin Level 3.2 gm/dl (3.4-5.0); Alkaline Phosphatase 65 U/L (45-117); BUN Creatinine Ratio 12.7 (10-20); Bilirubin,Total 0.6 mg/dl (0.2-1); Blood Urea Nitrogen 14 mg/dl (7-18); Calcium 8.4 mg/dl (8.5-10.1); Carbon Dioxide 27 mmol/L (21-32); Chloride 108 mmol/L (98-107); Chol HDL Ratio 3; Cholesterol 198 mg/dl (0-200); Creatinine Clr Calc Pharmacy 76.2 ml/min; Est GFR (African American) 82.9; Est GFR (Non-African American) 71.5; Globulin 5.4 gm/dl (2.5-4.0); Glucose 86 mg/dl (70-99); HDL Cholesterol 58 mg/dl; LDL Cholesterol Calculated 124 mg/dl; Phosphorus 2.6 mg/dl (2.5-4.9); Sodium 136 mmol/L (136-145); Total Protein 8.6 gm/dl (6.4-8.2); Triglycerides 79 mg/dl (0-150); VLDL Cholesterol 16 mg/dl
[2020-07-21] MEDS: METOPROLOL TARTRATE 25 MG TAB PO SCH ×2 (07:50→20:11)
[2020-07-21] MEDS: TICAGRELOR 90 MG TAB PO SCH ×2 (07:51→20:11)
[2020-07-21] MEDS: ASPIRIN 81 MG ECTAB PO SCH (07:51)
[2020-07-21] MEDS: ATORVASTATIN 40 MG TAB PO SCH (07:52)
--- NOTE | 2020-07-21 10:43 | Cardiology Progress Note ---
Date of Service July 21, 2020 Assessment & Plan (1) NSTEMI (non-ST elevated myocardial infarction): -troponin peaked at 35.4 following his procedure yesterday. -ECG reveals a subacute inferior infarction pattern. -no hemodynamic or electrical instability. -echocardiogram notes normal LV systolic function with an inferior wall motion. -agree with metoprolol, ticagrelor, aspirin, and atorvastatin. -would add low-dose lisinopril. -observe on telemetry for an additional 24 hours. (2) CAD (coronary artery disease): -RCA was the culprit vessel. -LCx with minimal disease diffusely. -mild to moderate diffuse disease in the LAD. -continue medical management and risk factor modification. (3) Stented coronary artery: -2.25 x 22 mm [place] drug-eluting stent in the distal RCA. Admission and Anticipated Discharge Date Admission Date: July 20, 2020 Subjective Mr. Frank is resting comfortably in bed without complaints of chest pain or dyspnea. Physical Exam Physical Exam: In general this is a well-developed well-nourished black male in no acute distress. HEENT exam is negative. Neck is supple with full carotid upstrokes. There are no carotid bruits. Jugular venous pressure is flat at 90. There is no thyromegaly. Cardiovascular exam reveals a regular rhythm with a normal S1 and S2. No S3, S4, or murmurs are noted. Lungs are clear without rales, rhonchi, or wheezes. Abdomen is soft and nontender without bruits. Extremities reveal intact radial artery and posterior tibial pulses bilaterally. There is no peripheral edema. Results & Data ([facility]) Vital Signs (Past 12 Hours) Vital Signs Temp Pulse Resp BP Pulse Ox 07/21/20 08:30 67 8 L 99 07/21/20 08:20 65 19 136/81 99 07/21/20 08:00 110 H 3 L 99 07/21/20 07:53 36.8 C 92 H 24 130/90 98 07/21/20 07:50 77 24 130/102 H 98 07/21/20 07:30 57 L 6 L 98 07/21/20 07:20 65 10 L 122/73 99 07/21/20 07:00 69 21 99 07/21/20 06:50 57 L 18 125/78 99 07/21/20 04:20 36.8 C 65 16 138/99 97 07/21/20 03:50 63 17 132/85 07/21/20 03:20 59 L 15 134/82 98 07/21/20 02:50 63 14 133/84 07/21/20 02:20 60 18 125/85 99 07/21/20 01:50 62 23 121/74 99 07/21/20 01:20 55 L 20 137/86 99 07/21/20 00:49 56 L 9 L 131/87 99 07/21/20 00:20 37 C 53 L 14 132/81 97 07/21/20 00:00 54 L 07/20/20 23:50 37 C 61 15 124/79 07/20/20 23:20 56 L 19 137/87 98 07/20/20 22:50 59 L 22 116/79 98 Laboratory Results Troponin peaked at 35.4. Diagnostic Findings manager monitoring is benign. PG Care Time/CCT Total # of Minutes Spent Total Time Spent with Patient: Total time spent is greater than 50% in coordination of care (as documented) at patient's floor/unit and/or counseling patient: Coding Level of Care Code 80340 Subseq Hosp Care Lvl 3 Diagnoses NSTEMI (non-ST elevated myocardial infarction) I21.4 CAD (coronary artery disease) I25.10 Stented coronary artery Z95.5
--- NOTE | 2020-07-21 10:50 | XCELERA ---
[id number]
--- NOTE | 2020-07-21 12:17 | Electrocardiogram Report ---
Test Reason : Blood Pressure : / mmHG Vent. Rate : 063 BPM Atrial Rate : 063 BPM P-R Int : 144 ms QRS Dur : 082 ms QT Int : 372 ms P-R-T Axes : 059 040 042 degrees QTc Int : 380 ms Poor data quality, interpretation may be adversely affected Normal sinus rhythm Minimal voltage criteria for LVH, may be normal variant Borderline ECG When compared with ECG of 20-JUL-2020 09:03, Nonspecific T wave abnormality no longer evident in Anterolateral leads Confirmed by Cleveland Alfredo ([id number]) on 07/21/2020 12:16:56 PM Referred By: Eleonora BURTON Confirmed By:Cleveland Alfredo
--- NOTE | 2020-07-21 12:33 | Electrocardiogram Report ---
Test Reason : Blood Pressure : / mmHG Vent. Rate : 062 BPM Atrial Rate : 062 BPM P-R Int : 142 ms QRS Dur : 082 ms QT Int : 376 ms P-R-T Axes : 071 027 005 degrees QTc Int : 381 ms Normal sinus rhythm Minimal voltage criteria for LVH, may be normal variant Inferior infarct , subacute Abnormal ECG When compared with ECG of 20-JUL-2020 11:58, (unconfirmed) Serial changes of evolving Inferior infarct Confirmed by Cleveland Aflredo ([id number]) on 07/21/2020 12:33:03 PM Referred By: Eleonora SCI Confirmed By:Cleveland Alfredo
--- NOTE | 2020-07-21 12:50 | Hospitalist Progress Note ---
Date of Service July 21, 2020 Assessment & Plan (1) NSTEMI (non-ST elevated myocardial infarction): Patient with typical angina and ECG changes taken to clinical lab technologist for urgent catheterization based on subacute endocardial injury, inferior pattern found to have occlusion in RCA, moderate disease in other vessels (medical management) drug eluting stent placed in RCA echo with preserved EF, inferior wall motion abnormality continue aspirin and Brilinta continue Lipitor 40mg daily metoprolol 25mg BID troponin peaked and now trending down no further chest pain, vitals stable plan for discharge tomorrow (2) Chest pain: As above, chest x-ray negative, secondary to NSTEMI (3) DVT prophylaxis: Heparin gtt Dispo-admit to PCU (4) CAD (coronary artery disease): presented with NSTEMI in RCA treated with drug eluting stent will need DAPT for one year, Lipitor, metoprolol (5) Stented coronary artery: drug eluting stent to RCA Admission and Anticipated Discharge Date Admission Date: July 20, 2020 Subjective patient feels well today, no chest pain or pressure, no dyspnea, no fever, no nausea labs and vital signs are stable he is eating well, making urine discussed with cardiology, observe an additional 24 hours then discharge to home Review of Systems Review of Systems: All systems reviewed & are unremarkable except as noted in Subjective Physical Exam Constitutional: WD/WN, vitals as above Neck: trachea midline, no thyromegaly Respiratory: normal respiratory effort, lungs clear to auscultation Cardiovascular: RRR, no murmur, no edema Gastrointestinal (Abdomen): normal bowel sounds, soft, nontender, no hepatosplenomegaly Musculoskeletal: no cyanosis or clubbing, extremities motor strength 5/5 Skin: no rashes, warm and dry Neurologic: patellar DTR's 2+ bilat, sensation intact and PERRL, EOMI, accommodation nl, no face palsy, no dysarthria Psychiatric: A+Ox3, euthymic affect Lymphatic: no cervical or axillary lymphadenopathy Results & Data Results & Data ([facility]) Vital Signs (Past 12 Hours) Vital Signs Temp Pulse Resp BP Pulse Ox 07/21/20 12:30 36.8 C 61 29 H 98 07/21/20 12:20 63 17 108/68 98 07/21/20 12:00 67 15 98 07/21/20 11:50 60 19 127/79 97 07/21/20 11:30 53 L 8 L 99 07/21/20 11:20 59 L 14 120/80 98 07/21/20 11:00 54 L 20 100 07/21/20 10:50 56 L 14 117/80 99 07/21/20 10:30 56 L 14 99 07/21/20 10:20 62 7 L 115/80 98 07/21/20 10:00 59 L 15 98 07/21/20 09:50 58 L 16 124/79 98 07/21/20 09:30 55 L 17 99 07/21/20 09:20 57 L 21 121/75 99 07/21/20 09:00 59 L 17 99 07/21/20 08:50 62 19 126/80 99 07/21/20 08:30 67 8 L 99 07/21/20 08:20 65 19 136/81 99 07/21/20 08:00 110 H 3 L 99 07/21/20 07:53 36.8 C 92 H 24 130/90 98 07/21/20 07:50 77 24 130/102 H 98 07/21/20 07:30 57 L 6 L 98 07/21/20 07:20 65 10 L 122/73 99 07/21/20 07:00 69 21 99 07/21/20 06:50 57 L 18 125/78 99 07/21/20 04:20 36.8 C 65 16 138/99 97 07/21/20 03:50 63 17 132/85 07/21/20 03:20 59 L 15 134/82 98 07/21/20 02:50 63 14 133/84 07/21/20 02:20 60 18 125/85 99 07/21/20 01:50 62 23 121/74 99 07/21/20 01:20 55 L 20 137/86 99 Laboratory Results Laboratory Results - last 24 hr 07/20/20 07/20/20 07/20/20 12:00 12:24 13:37 WBC RBC Hgb Hct MCV MCH MCHC RDW Std Deviation RDW Coeff of Eder Plt Count MPV Immature Gran % (Auto) Neut % (Auto) Lymph % (Auto) [place] % (Auto) Eos % (Auto) Baso % (Auto) Neut # (Auto) Lymph # (Auto) [place] # (Auto) Eos # (Auto) Baso # (Auto) Immature Gran # (Auto) Sodium Potassium Chloride Carbon Dioxide Anion Gap BUN Creatinine Est Cr Clr Drug Dosing Est GFR ( Amer) Est GFR (Non-Af Amer) BUN/Creatinine Ratio Glucose POC Glucose 83 Calcium Phosphorus Magnesium Total Bilirubin Direct Bilirubin AST ALT Alkaline Phosphatase Troponin I 11.800 H* Total Protein Albumin Globulin Albumin/Globulin Ratio Triglycerides Cholesterol LDL Cholesterol, Calc VLDL Cholesterol, Calc HDL Cholesterol Cholesterol/HDL Ratio Nasal Screen MRSA (PCR) Negative 07/20/20 07/20/20 07/21/20 17:44 22:20 04:43 WBC 9.10 RBC 4.57 L Hgb 14.7 Hct 41.2 L MCV 90.2 MCH 32.2 MCHC 35.7 RDW Std Deviation 42.8 RDW Coeff of Eder 13.1 Plt Count 227 MPV 10.7 H Immature Gran % (Auto) 0.2 Neut % (Auto) 73.9 Lymph % (Auto) 15.9 [place] % (Auto) 9.5 Eos % (Auto) 0.4 Baso % (Auto) 0.1 Neut # (Auto) 6.72 H Lymph # (Auto) 1.45 [place] # (Auto) 0.86 H Eos # (Auto) 0.04 Baso # (Auto) 0.01 Immature Gran # (Auto) 0.02 Sodium Potassium Chloride Carbon Dioxide Anion Gap BUN Creatinine Est Cr Clr Drug Dosing Est GFR ( Amer) Est GFR (Non-Af Amer) BUN/Creatinine Ratio Glucose POC Glucose Calcium Phosphorus Magnesium Total Bilirubin Direct Bilirubin AST ALT Alkaline Phosphatase Troponin I 35.400 H* 33.900 H* Total Protein Albumin Globulin Albumin/Globulin Ratio Triglycerides Cholesterol LDL Cholesterol, Calc VLDL Cholesterol, Calc HDL Cholesterol Cholesterol/HDL Ratio Nasal Screen MRSA (PCR) 07/21/20 04:43 WBC RBC Hgb Hct MCV MCH MCHC RDW Std Deviation RDW Coeff of Eder Plt Count MPV Immature Gran % (Auto) Neut % (Auto) Lymph % (Auto) [place] % (Auto) Eos % (Auto) Baso % (Auto) Neut # (Auto) Lymph # (Auto) [place] # (Auto) Eos # (Auto) Baso # (Auto) Immature Gran # (Auto) Sodium 136 Potassium TNP Chloride 108 H Carbon Dioxide 27 Anion Gap 1.0 L BUN 14 Creatinine 1.12 Est Cr Clr Drug Dosing 76.2 Est GFR ( Amer) 82.9 Est GFR (Non-Af Amer) 71.5 BUN/Creatinine Ratio 12.7 Glucose 86 POC Glucose Calcium 8.4 L Phosphorus 2.6 Magnesium TNP Total Bilirubin 0.6 Direct Bilirubin TNP AST TNP ALT 44 Alkaline Phosphatase 65 Troponin I 20.800 H* Total Protein 8.6 H Albumin 3.2 L Globulin 5.4 H Albumin/Globulin Ratio 0.6 L Triglycerides 79 Cholesterol 198 LDL Cholesterol, Calc 124 VLDL Cholesterol, Calc 16 HDL Cholesterol 58 Cholesterol/HDL Ratio 3 Nasal Screen MRSA (PCR) Medications Administered Current Inpatient Medications Acetaminophen (Acetaminophen 325 Mg Tab) 650 mg PO Q4H PRN PRN Reason: Pain or Fever Stop: 08/19/20 12:06 Aspirin (Aspirin 81 Mg Ectab) [facility] [place] Stop: 08/20/20 08:59 Last Admin: 07/21/20 07:51 Dose: 81 mg Documented by: Atorvastatin Calcium (Atorvastatin 40 Mg Tab) 40 mg PO QAM [facility] Stop: 08/20/20 08:59 Last Admin: 07/21/20 07:52 Dose: 40 mg Documented by: Metoprolol Tartrate (Metoprolol Tartrate 25 Mg Tab) 25 mg PO BID [facility] Stop: 08/19/20 20:59 Last Admin: 07/21/20 07:50 Dose: 25 mg Documented by: Morphine Sulfate (Morphine Sulfate 2 Mg/Ml Carp) 2 mg IV Q30M PRN PRN Reason: Chest Pain Stop: 08/03/20 12:06 Nitroglycerin (Nitroglycerin Sl 0.4 Mg/Tab Tab) 0.4 mg SL UD PRN PRN Reason: Chest Pain Stop: 08/19/20 09:10 Ondansetron HCl (Ondansetron Inj 2 Mg/Ml 2 Ml Vial) 4 mg IV Q6H PRN PRN Reason: Nausea Stop: 08/19/20 12:06 Ticagrelor (Ticagrelor 90 Mg Tab) 90 mg PO BID [facility] Stop: 08/19/20 21:59 Last Admin: 07/21/20 07:51 Dose: 90 mg Documented by: PG Care Time/CCT Total # of Minutes Spent Total Time Spent with Patient: Total time spent is greater than 50% in coordination of care (as documented) at patient's floor/unit and/or counseling patient: Coding Level of Care Code 42377 Subseq Hosp Care Lvl 2 Diagnoses NSTEMI (non-ST elevated myocardial infarction) I21.4 Chest pain R07.9 DVT prophylaxis Z29.9 CAD (coronary artery disease) I25.10 Stented coronary artery Z95.5
--- NOTE | 2020-07-22 09:53 | Discharge Summary ---
Date of Service July 22, 2020 Admission HPI Per Admitting Provider This patient is a 59-year-old male with no significant past medical history who presents from the group home after awakening with substernal severe 10/10 in severity chest pain. He was significantly diaphoretic upon evaluation at the group home. The pain was nonradiating, and he denied any shortness of breath, nausea/vomiting. The chest pain lasted for 45 minutes and he received sublingual nitroglycerin and 4 baby aspirin prior to arrival in the ER which completely resolved his chest pain, however when I saw him at 9 AM, he was complaining of 2/10 chest pressure. His ECG showed normal sinus rhythm, with mild but not diagnostic ST elevation in leads II, III and aVF, as well as nonspecific T wave changes in V2, no previous ECGs available for comparison. A repeat ECG was performed when I was at the bedside which showed some improvement but slight persistence in mild upsloping ST elevation in leads II, III and aVF. His first troponin was elevated 0.1, and labs were otherwise unremarkable. His chest x-ray upon my review was negative but has not been read by the radiologist yet. He will be admitted for NSTEMI and cardiology consultation will be obtained. Principal Diagnosis NSTEMI, acute occlusion of right coronary artery, s/p drug eluting stent Discharge Exam Constitutional WD/WN, vitals as above Neck trachea midline, no thyromegaly Respiratory normal respiratory effort, lungs clear to auscultation Cardiovascular RRR, no murmur, no edema Gastrointestinal (Abdomen) normal bowel sounds, soft, nontender, no hepatosplenomegaly Musculoskeletal no cyanosis or clubbing, extremities motor strength 5/5 Skin no rashes, warm and dry Neurologic patellar DTR's 2+ bilat, sensation intact and PERRL, EOMI, accommodation nl, no face palsy, no dysarthria Psychiatric A+Ox3, euthymic affect Lymphatic no cervical or axillary lymphadenopathy Discharge Data Allergies Allergy/AdvReac Type Severity Reaction Status Date / Time No Known Allergies Allergy Unverified 07/20/20 05:18 Consultations 07/20/20 07:11 ED Decision to Admit Stat 07/20/20 08:50 Consult Cardiology Routine 07/20/20 12:10 Consult Sagger Soak Routine Procedures Performed Operation Date: 07/20/20 10:15 Actual Procedures p Aspiration/PCI w/CHRISSIE for Stemi(Right) - Ziggy Martell MD s Cineradiography w/Routine Exam - Ziggy Martell MD s Cath, Left with Cors and Vent - Solis Vides MD Ordered Studies 07/20/20 10:18 CL Cath Imgs for PACS use only Stat Hospital Course (1) NSTEMI (non-ST elevated myocardial infarction): Patient with typical angina and ECG changes taken to label tacker for urgent catheterization based on subacute endocardial injury, inferior pattern found to have occlusion in RCA, moderate disease in other vessels (medical management) drug eluting stent placed in RCA echo with preserved EF, inferior wall motion abnormality treated with aspirin and Brilinta, d/w [facility], they do not carry Brilinta on formulary, change to Plavix 75mg daily on discharge continue Lipitor 40mg daily metoprolol 25mg BID troponin peaked and now trending down no further chest pain, vitals stable for three days discharge back to [facility] today, d/w the provider there follow up with cardiology in several weeks (2) Chest pain: As above, chest x-ray negative, secondary to NSTEMI (3) CAD (coronary artery disease): presented with NSTEMI in RCA treated with drug eluting stent will need DAPT for one year, Lipitor, metoprolol (4) Stented coronary artery: drug eluting stent to RCA Total Time Total Time Spent Total Time Spent (In Minutes): 31 Total Time Includes: Examination of the Patient, Discharge Planning, Medication Reconciliation and Communication With Other Providers (spoke with provider at [facility], spoke with cardiology) Discharge Plan Discharge Items [facility] Reason For Visit: NSTEMI Discharge Diagnosis: NSTEMI s/p drug eluting stent to right coronary artery Condition on Discharge: Good Goals: medical management of coronary disease follow up in several weeks with cardiology Activity: Per Instructions section Lifting: None Exercise/Sports: Gradually increase as tolerated Weightbearing: Full weightbearing Non-emergency contact: Primary Care Provider and Food And Beverage Assistant Manager Call non-emergency contact if: you have any medication questions and your symptoms worsen Follow-up/Referrals: Cleveland Alfredo MD [Physician] - (4-6 weeks) Eleonora BURTON [Primary Care Provider] - Diet: Heart Healthy Addtl Attending Provider Instructions: Medications: - ASPIRIN: 81mg daily, take indefinitely - PLAVIX: 75mg daily, take for one year to keep stent open - LIPITOR: 40mg daily - LOPRESSOR: 25mg twice a day, tolerating well, HR in 60's - NITRO: sublingual, take as needed for chest pain/pressure see discharge summary for details, he has been stable, chest pain free for two days gradually increase activity as tolerated, no strenuous activity for 2 weeks Pending Studies at Discharge: No Stand-Alone Forms: My [facility] Ischemia Care Skilled Items Patient informed of condition?: Yes Discharge Level of Care: Other Communicable Disease: No Discharge Prognosis: Stable Lines: None Urinary Catheter: No Medications and DC Order Prescriptions: New atorvastatin 40 mg Tablet 40 mg PO QAM 30 Days Qty: 30 RF: 3 aspirin 81 mg Tablet,Delayed Release (Dr/Ec) 81 mg PO QAM 30 Days Qty: 30 RF: 3 nitroglycerin [Nitrostat] 0.4 mg Tablet, Sublingual 0.4 mg sublingual UD PRN (Reason: chest pain) 30 Days RF: 1 metoprolol tartrate 25 mg Tablet 25 mg PO BID 30 Days Qty: 60 RF: 3 clopidogrel [Plavix] 75 mg tablet 75 mg PO DAILY Qty: 30 RF: 3 Discharge Orders: Discharge Order (Routine); Ordered 07/22/20 Ordered By: Kem Vaca Admission Data Admit Date/Time: 07/20/20 08:50 Attending Provider: Kem Vaca Admit Provider: Leigh Robert Primary Care Provider: Eleonora BURTON Other Providers: Cleveland Alfredo ; Leigh Robert ; Denton Cisneros Other Interventions: Discharge Summary Assessment (RN) Last Done: 07/22/20 10:34 Coding Level of Care Code D/C Day Management >30 mins Diagnoses NSTEMI (non-ST elevated myocardial infarction) I21.4 Chest pain R07.9 CAD (coronary artery disease) I25.10 Stented coronary artery Z95.5
--- NOTE | 2020-07-22 10:04 | Cardiology Progress Note ---
Date of Service July 22, 2020 Assessment & Plan (1) NSTEMI (non-ST elevated myocardial infarction): -troponin peaked at 35.4. -no hemodynamic or electrical instability. -echocardiogram notes normal LV systolic function with proximal inferior hypokinesis. -agree with metoprolol, ticagrelor, aspirin, and atorvastatin. -would add low-dose lisinopril. -stable for hospital discharge. -I would be happy to see Mr. Frank in follow-up. (2) CAD (coronary artery disease): -RCA was the culprit vessel. -LCx with minimal disease. -mild to moderate diffuse disease in the LAD. -continue medical management and risk factor modification. (3) Stented coronary artery: -2.25 x 22 mm [place] drug-eluting stent in the distal RCA. Admission and Anticipated Discharge Date Admission Date: July 20, 2020 Subjective The patient is resting comfortably in bed without complaints of chest pain or dyspnea. He is anxious for hospital discharge. Physical Exam Physical Exam: In general this is a well-developed well-nourished black male in no acute distress. HEENT exam is negative. Neck is supple with full carotid upstrokes. There are no carotid bruits. Jugular venous pressure is flat at 90. There is no thyromegaly. Cardiovascular exam reveals a regular rhythm with a normal S1 and S2. No S3, S4, or murmurs are noted. Lungs are clear without rales, rhonchi, or wheezes. Abdomen is soft and nontender without bruits. Extremities reveal intact radial artery and posterior tibial pulses bilaterally. There is no peripheral edema. Results & Data ([facility]) Vital Signs (Past 12 Hours) Vital Signs Temp Pulse Resp BP Pulse Ox 07/22/20 05:53 36.8 C 59 L 18 113/75 98 07/22/20 01:53 58 L 11 L 120/79 99 07/22/20 00:27 36.8 C 72 21 130/85 99 07/22/20 00:00 57 L Diagnostic Findings clinical research monitor is benign. PG Care Time/CCT Total # of Minutes Spent Total Time Spent with Patient: Total time spent is greater than 50% in coordination of care (as documented) at patient's floor/unit and/or counseling patient: Coding Level of Care Code 32502 Subseq Hosp Care Lvl 3 Diagnoses NSTEMI (non-ST elevated myocardial infarction) I21.4 CAD (coronary artery disease) I25.10 Stented coronary artery Z95.5
[2020-07-22] MEDS: METOPROLOL TARTRATE 25 MG TAB PO SCH (10:09)
[2020-07-22] MEDS: ATORVASTATIN 40 MG TAB PO SCH (10:10)
[2020-07-22] MEDS: ASPIRIN 81 MG ECTAB PO SCH (10:10)
[2020-07-22] MEDS: TICAGRELOR 90 MG TAB PO SCH (10:10)
--- NOTE | 2020-07-22 15:10 | Electrocardiogram Report ---
Test Reason : Blood Pressure : / mmHG Vent. Rate : 059 BPM Atrial Rate : 059 BPM P-R Int : 144 ms QRS Dur : 078 ms QT Int : 386 ms P-R-T Axes : 070 034 -32 degrees QTc Int : 382 ms Sinus bradycardia Possible Left atrial enlargement Inferior infarct , age undetermined Abnormal ECG When compared with ECG of 21-JUL-2020 04:24, Serial changes of evolving Inferior infarct Confirmed by Cleveland Alfredo ([id number]) on 07/22/2020 3:10:12 PM Referred By: [facility] Confirmed By:Cleveland Alfredo
== END 2020-07-22 10:45 | DRG 247 ==
LOC: ED 05:12 → SUATTDRO 08:50 → CC 10:10 → 1E 10:11